=== PATIENT | male | born 1950 | race Caucasian/White ===

== ENCOUNTER → 2018-12-08 | Outpatient (CLI) | payer MEDICARE, BC ==
[2018-12-08 12:05] LABS: Basophils # (A) 0.1 k/uL (0-0.2); Basophils % (A) 1 %; Eosinophils # (A) 0.3 k/uL (0-0.7); Eosinophils % (A) 4 %; HCT 41.5 % (39.0-53.0); HGB 13.8 gm/dL (13.0-17.5); Lymphocytes # (A) 1.9 k/uL (1.0-4.8); Lymphocytes % (A) 28 %; MCH 30.2 pg (25.0-35.0); MCHC 33.2 g/dL (31.0-37.0); MCV 91.2 fL (80.0-100.0); Mean Platelet Volume 7.8; Monocytes # (A) 0.3 k/uL (0-1.0); Monocytes % (A) 5 %; Neutrophils # (A) 4.2 k/uL (1.3-7.7); Neutrophils % (A) 60 %; Platelet Count 305 k/uL (150-450); RBC 4.55 m/uL (4.30-5.90); RDW 14.6 % (11.5-15.5); WBC 6.9 k/uL (3.8-10.6)
[2018-12-08 12:07] LABS: African American GFR (CKD) >90 (>60 ml/min/1.73 sqM); Anion Gap 11 mmol/L; Blood Urea Nitrogen 20 mg/dL (9-20); Carbon Dioxide 24 mmol/L (22-30); Chloride 104 mmol/L (98-107); Sodium 139 mmol/L (137-145)
== END | disposition home or self-care (01) ==
LOC: LABPAT 10:27
PROVIDERS: ATTEND Surgery
DX: Z01.812 Encounter for preprocedural laboratory examination (principal); I73.9 Peripheral vascular disease, unspecified
CPT/HCPCS: 80051; 82565; 84520; 85025

== ENCOUNTER 2018-12-19 08:43 | Day surgery (SDC) | payer MEDICARE, BC ==
[2018-12-08 15:59] VITALS: BMI 31.4
[~2018-12-19 08:43] MED LIST: ASPIRIN 325 MG TAB PO ONE
[2018-12-19] MEDS ORDERED: SODIUM CHLORIDE 0.9% 1,000 ML IV ONE (09:20)
[2018-12-19 09:21] LABS: Glucose,Whole Blood 93 mg/dL (75-99)
[2018-12-19 09:30] VITALS: RESP 16; TEMP 97.8
[2018-12-19] MEDS ORDERED: LIDOCAINE 1% INJ 10MG/ML (20 ML MDV) SQ ONE (11:15)
[2018-12-19] MEDS ORDERED: fentaNYL (PF) 50 MCG/ML 2 ML AMP IV ONE (11:20)
[2018-12-19] MEDS ORDERED: MIDAZOLAM (PF) 2 MG/2 ML VIAL IV ONE (11:21)
[2018-12-19] MEDS ORDERED: IOPAMIDOL-250 100ML BTL INTRAARTER ONE (11:30)
--- NOTE | 2018-12-19 12:16 | IR ---
EXAMINATION TYPE: IR angio abdominal w runoff DATE OF EXAM: 12/19/2018 COMPARISON: NONE HISTORY: Fluoroscopy time. Fluoroscopy was provided to the referring clinician.
[2018-12-19] MEDS ORDERED: SODIUM CHLORIDE 0.9% 1,000 ML IV SCH (12:30)
[2018-12-19 13:35] VITALS: BP 138/78; PULSE 72
--- NOTE | 2018-12-26 14:20 | P.OP ---
Date of Procedure: 12/19/18 Preoperative Diagnosis: Bilateral lower extremity claudication Postop diagnosis: Bilateral lower extremity disabling claudication with left common femoral artery occlusion. Procedure: Aortogram with bilateral lower extremity runoffs via left brachial artery access under ultrasound guidance Surgeon: Toni Anesthesia: Moderate sedation times 18 minutes Estimated blood loss: 5 mL Complications: None Condition: Stable Findings: Aorta: No evidence of atherosclerotic disease. Patent Iliacs: Right common iliac is patent with stent in place without stenosis. Left iliac is patent without severe after stenotic disease. Internal and external iliac arteries are patent Femorals: Right femoral artery with patch angioplasty is widely patent there is some mild disease noted in the femoral artery extending into the superficial femoral artery. Superficial femoral artery has occlusive disease in the right distal to the Aubrey's canal. Left common femoral artery has severe occlusive disease. Profundus is patent and SFA has chronic total occlusion at the midportion down the thigh. Popliteal: Right distal popliteal artery at the knee and below is occluded. There is reconstitution noted at the anterior tibial artery. Left popliteal artery is patent. Tibials: Anterior tibial artery is patent with tibioperoneal trunk occlusion. Posterior tibial artery does re-collateralized. Left TPT and AT, PT are patent with two-vessel runoff to the ankle. Indication for procedure: 68 year old gentleman with history of severe PAD presents to the labor trainer for angiogram of his lower extremities. He recently had LISA's in the office which were severely decreased from his previous visit and his pain has been worsening on the left lower extremity and can only walk a 1/4 of a block without pain. Operative narrative: After written informed consent was obtained the patient all risks benefits competitions were described the patient is brought to the Grain Receiver and laid in a supine position. The area of the left arm was prepped and draped in the usual sterile fashion. Local anesthesia with moderate sedation was performed with continuous pulse ox monitoring and EKG monitoring. Utilizing ultrasound the left brachial artery was visualized and shown to be patent without any significant plaque. Utilizing a multipurpose needle under ultrasound guidance the artery was accessed. Guidewire was placed followed by 5 kenyan sheath. 035 Glidewire was then placed into the aorta followed by pigtail catheter. Angiogram was then obtained of the aorta. Catheter was then placed at the bifurcation and lower extremity runoffs were obtained. Once completed all guidewires, catheters and sheaths were removed and pressure was placed for hemostasis. Patient tolerated procedure well was sent to PACU for recovery Plan - Discharge Summary Discharge Rx Participant: Yes New Discharge Prescriptions: No Action Lisinopril 20 mg PO DAILY Atorvastatin [Lipitor] 20 mg PO DAILY Clopidogrel Bisulfate [Plavix] 75 mg PO DAILY Budesonide/Formoterol Fumarate [Symbicort 80-4.5 Mcg Inhaler] 2 puff INHALATION BID ALPRAZolam [Xanax] 0.5 mg PO TID Insulin Glargine [Lantus] 6 - 10 unit SQ HS Insulin Glargine [Lantus] 65 unit SQ DAILY glyBURIDE/METFORMIN HCL [Glucovance 2.5-500 mg] 1 tab PO BID Aspirin [Adult Low Dose Aspirin EC] 81 mg PO DAILY Discharge Medication List ALPRAZolam [Xanax] 0.5 mg PO TID 12/08/18 [History] Aspirin [Adult Low Dose Aspirin EC] 81 mg PO DAILY 12/08/18 [History] Atorvastatin [Lipitor] 20 mg PO DAILY 12/08/18 [History] Budesonide/Formoterol Fumarate [Symbicort 80-4.5 Mcg Inhaler] 2 puff INHALATION BID 12/08/18 [History] Clopidogrel Bisulfate [Plavix] 75 mg PO DAILY 12/08/18 [History] Insulin Glargine [Lantus] 6 - 10 unit SQ HS 12/08/18 [History] Insulin Glargine [Lantus] 65 unit SQ DAILY 12/08/18 [History] Lisinopril 20 mg PO DAILY 12/08/18 [History] glyBURIDE/METFORMIN HCL [Glucovance 2.5-500 mg] 1 tab PO BID 12/08/18 [History] Follow up Appointment(s)/Referral(s): Miki Muñoz DO [STAFF PHYSICIAN] - 01/09/19 2:30 pm (follow up appointment is on January 09Tuesday at 2:30 PM) Patient Instructions/Handouts: Peripheral Vascular Angioplasty (DC) Activity/Diet/Wound Care/Special Instructions: no driving for two days. signs of infection ie: fever, purulent drainage, swelling around arm/puncture site , rash contact doctor immediately/return to ER if needed. ok to shower tomorrow. No bath tubs, hot tubs, pools for three days. No need to apply dressing to site after shower. keep arm board on until bed time. Avoid lifting greater than 5 lbs for three days with left arm. Discharge Disposition: HOME SELF-CARE
== END 2018-12-19 13:35 | disposition home or self-care (01) ==
LOC: CATHCVL 08:43
PROVIDERS: ATTEND Surgery
DX: I70.213 Atherosclerosis of native arteries of extremities with intermittent claudication, bilateral legs (principal); F41.9 Anxiety disorder, unspecified; I72.3 Aneurysm of iliac artery; F17.200 Nicotine dependence, unspecified, uncomplicated; E11.9 Type 2 diabetes mellitus without complications; E78.00 Pure hypercholesterolemia, unspecified; Z98.890 Other specified postprocedural states; Z79.02 Long term (current) use of antithrombotics/antiplatelets; Z79.4 Long term (current) use of insulin; Z79.51 Long term (current) use of inhaled steroids; Z79.899 Other long term (current) drug therapy
CPT/HCPCS: 36200; 75625; 75716; 76937; C1894; C1769 ×4; J2001; J3010; Q9966; J2250

== ENCOUNTER → 2022-01-15 | Outpatient (CLI) | payer MEDICARE, BC ==
--- NOTE | 2022-01-17 10:56 | CA ---
Transthoracic Echo Report Name: Randy Yang Age: 71 Gender: M : 1950 Exam Date: 01/15/2022 12:02 Exam Location: [facility] Ht (in): 67 Wt (lb): 194 Ordering Physician: [place] Carl MD Attending/Referring Phys: Solution Manager Hayley Negrete RDCS Procedure CPT: Indications: I10 HYPERTENSION Cardiac Hx: Technical Quality: Good Contrast 1: Total Dose (mL): Contrast 2: Total Dose (mL): MEASUREMENTS (Male / Female) Normal Values 2D ECHO LA Volume 50.7 cm??? 18 - 58 / 22 - 52 cm??? M-MODE Aortic Root Diameter MM 3.2 cm LA Systolic Diameter MM 3.5 cm LA Ao Ratio MM 1.1 MV E Point Septal Separation 2.0 cm AV Cusp Separation MM 1.5 cm DOPPLER MV Area PHT 2.5 cm??? Mitral E Point Velocity 30.0 cm/s Mitral A Point Velocity 63.3 cm/s Mitral E to A Ratio 0.5 MV Deceleration Time 306.0 ms MV E' Velocity 3.4 cm/s Mitral E to MV E' Ratio 8.9 FINDINGS Left Ventricle Mildly impaired LV function was EF between 45-50% Right Ventricle The right ventricle is normal in size and function. Right Atrium The right atrium is normal in size. Left Atrium The left atrium is normal in size. Mitral Valve Structurally normal mitral valve without significant stenosis or prolapse. There is mild mitral regurgitation. Aortic Valve Structurally normal aortic valve without significant sclerosis or stenosis. There is no aortic regurgitation. Tricuspid Valve Structurally normal tricuspid valve without significant stenosis. Pulmonary artery systolic pressure is normal. Pulmonic Valve Structurally normal pulmonic valve without significant stenosis. There is no pulmonic regurgitation. Pericardium Normal pericardium without effusion. Aorta Normal aortic root dimension. CONCLUSIONS Mildly impaired LV function was EF between 45-50% Previewed by: Dr. Minh Soto MD (Electronically Signed) Final Date: 17 January 2022 10:55
== END | disposition home or self-care (01) ==
LOC: RADECHMAIN 11:56
PROVIDERS: ATTEND Internal Medicine
DX: I10 Essential (primary) hypertension (principal); I08.0 Rheumatic disorders of both mitral and aortic valves
CPT/HCPCS: 93306

== ENCOUNTER → 2022-06-18 | Outpatient (CLI) | payer MEDICARE, BC ==
--- NOTE | 2022-06-23 07:03 | MR ---
EXAMINATION TYPE: MR brain and iac wo/w con DATE OF EXAM: 06/18/2022 COMPARISON: NONE HISTORY: Imbalance, dizziness. TECHNIQUE: Multiplanar, multisequence images of the brain and brainstem along with internal auditory canals are all performed without and with IV contrast, utilizing 9 mL intravenous Gadavist . FINDINGS: Diffusion weighted images demonstrate no evidence of a recent infarct or other diffusion ab normality. There is mild to moderate ventricular and sulcal prominence. There are some small areas o f T2 hyperintensity throughout the deep and periventricular white matter. T2 Star weighted images kamilah w no suspicious intraparenchymal blood products Midline structures demonstrate normal morphology. The craniocervical junction appears within normal limits. Post contrast images demonstrate no abnormal enhancement. The dural venous sinuses appear pa tent. The globes are intact bilaterally mild to moderate mucosal thickening involving ethmoid sinuses bilaterally there are few tiny mucous retention cysts and/or polyps in the inferior maxillary sinuse s bilaterally. Increased fluid signal right mastoid air cells is present. The vestibulocochlear complexes are symmet donovan and felt within normal limits. There is no suspicious enhancing cerebellopontine angle mass clear ly seen bilaterally. IMPRESSION: 1. Increased fluid signal right mastoid air cells raises concern for right-sided mastoiditis and may cause symptoms of dizziness. 2. There is vagq-kr-[id number] diffuse cerebral atrophy and mild chronic small vessel ischemic change. No suspicious enhancement is seen. 3. There is chronic paranasal sinus disease noted as detailed above.
== END | disposition home or self-care (01) ==
LOC: RADMRIMAIN 07:52
PROVIDERS: ATTEND Psychiatry & Neurology Neurology
DX: I67.82 Cerebral ischemia (principal); G31.9 Degenerative disease of nervous system, unspecified; D49.6 Neoplasm of unspecified behavior of brain; H81.10 Benign paroxysmal vertigo, unspecified ear
CPT/HCPCS: 70553; A9585

== ENCOUNTER 2023-02-15 16:19 | Inpatient (IN) | payer MEDICARE, BC ==
[2023-02-15] MEDS ORDERED: SODIUM CHLORIDE 0.9% 1,000 ML IV STA (16:40)
[2023-02-15] MEDS ORDERED: ONDANSETRON 4 MG/2 ML VIAL IVP STA (16:40)
[2023-02-15] MEDS ORDERED: IPRATROPIUM-ALBUTEROL 3 ML NEB INHALATION STA (16:43)
--- NOTE | 2023-02-15 16:53 | ED ---
GI Bleed HPI - General Chief complaint: GI Bleed Stated complaint: black vomit and black stool Time Seen by Provider: 02/15/23 16:36 Source: patient Mode of arrival: ambulatory Limitations: no limitations - History of Present Illness Initial comments: 72-year-old male presenting with chief complaint of black stool and emesis. Patient states that on Tuesday he began to feel nauseous. On Tuesday he had multiple episodes of vomiting black in color. He also had a bowel movement that was black in color. States that today he had another dark bowel movement. He admits to left lower quadrant pain. No history of GI bleed. Patient is on Plavix. Currently smokes about a pack and a half day. Denies alcohol or drug use. No trauma or injury. No chest pain or difficulty breathing. No fevers or chills. States that he gets a bit lightheaded when transferring from sitting to standing. - Related Data Home Medications Medication Instructions Recorded Confirmed ALPRAZolam [Xanax] 0.5 mg PO TID 12/08/18 02/15/23 Aspirin [Adult Low Dose Aspirin EC] 81 mg PO DAILY 12/08/18 02/15/23 Atorvastatin [Lipitor] 20 mg PO DAILY 12/08/18 02/15/23 Clopidogrel Bisulfate [Plavix] 75 mg PO DAILY 12/08/18 02/15/23 glyBURIDE/METFORMIN HCL 1 tab PO DAILY 12/08/18 02/15/23 [Glucovance 2.5-500 mg] lisinopriL 20 mg PO DAILY 12/08/18 02/15/23 Budesonide/Formoterol Fumarate 2 puff INHALATION RT-BID 02/15/23 02/15/23 [Symbicort 160-4.5 Mcg Inhaler] Empagliflozin [Jardiance] 25 mg PO -BRKFST 02/15/23 02/15/23 Insulin Glargine,Hum.rec.anlog 74 units SQ AC-BRKFST 02/15/23 02/15/23 [Lantus Solostar Pen] metFORMIN HCL ER [Glucophage XR] 1,000 mg PO BID-W/MEALS 02/15/23 02/15/23 Allergies Allergy/AdvReac Type Severity Reaction Status Date / Time No Known Allergies Allergy Verified 02/15/23 16:26 Review of Systems ROS Statement: Those systems with pertinent positive or pertinent negative responses have been documented in the HPI. ROS Other: All systems not noted in ROS Statement are negative. Past Medical History Past Medical History: Diabetes Mellitus, Hyperlipidemia, Hypertension, Osteoarthritis (OA), Vascular Disorder History of Any Multi-Drug Resistant Organisms: None Reported Past Surgical History: Orthopedic Surgery, Tonsillectomy Additional Past Surgical History / Comment(s): stent in rt groin, ORIF rt ankle, Past Anesthesia/Blood Transfusion Reactions: No Reported Reaction Past Psychological History: Anxiety Smoking Status: Current every day smoker Past Alcohol Use History: None Reported Past Drug Use History: None Reported - Past Family History Mother Family Medical History: No Reported History General Exam Limitations: no limitations General appearance: alert, in no apparent distress Head exam: Present: atraumatic, normocephalic, normal inspection Eye exam: Present: normal appearance, EOMI. Absent: scleral icterus, periorbital swelling Neck exam: Present: normal inspection, full ROM Respiratory exam: Present: normal lung sounds bilaterally. Absent: respiratory distress, wheezes, rales, rhonchi, stridor Cardiovascular Exam: Present: regular rate, normal rhythm, normal heart sounds. Absent: systolic murmur, diastolic murmur, rubs, gallop, clicks GI/Abdominal exam: Present: soft, tenderness. Absent: distended, guarding, rebound, rigid Neurological exam: Present: alert, oriented X3, CN II-XII intact Psychiatric exam: Present: normal affect, normal mood Skin exam: Present: warm, dry, intact, normal color. Absent: rash Course Vital Signs 02/15/23 02/15/23 02/15/23 16:21 18:13 18:27 Temperature 97.4 F L Pulse Rate 97 88 85 Respiratory 20 18 Rate Blood Pressure 129/68 129/73 O2 Sat by Pulse 98 Oximetry 02/15/23 23:44 Temperature Pulse Rate 82 Respiratory 16 Rate Blood Pressure 128/60 O2 Sat by Pulse 96 Oximetry Medical Decision Making - Medical Decision Making Was pt. sent in by a medical professional or institution (, PA, BIOPSYCHOLOGIST, urgent care, hospital, or retirement...) When possible be specific @ -No Did you speak to anyone other than the patient for history (EMS, parent, family, police, friend...)? What history was obtained from this source @ -No Did you review nursing and triage notes (agree or disagree)? Why? @ -I reviewed and agree with nursing and triage notes Were old charts reviewed (outside hosp., previous admission, EMS record, old EKG, old radiological studies, urgent care reports/EKG's, retirement records)? Report findings @ -No old charts were reviewed Differential Diagnosis (chest pain, altered mental status, abdominal pain women, abdominal pain men, vaginal bleeding, weakness, fever, dyspnea, syncope, headache, dizziness, GI bleed, back pain, seizure, CVA, palpatations, mental health, musculoskeletal)? @ -MDM Differential GI Bleed: Esophageal varices, aortoenteric fistula, Malu-Khan, gastritis, peptic ulcer disease, diverticulosis, inflammatory bowel disease, hemorrhoids, fissure, colitis, malignancy, Meckels diverticulum this is not meant to be an all- inclusive list. EKG interpreted by me (3pts min.). @ -Sinus rhythm ventricular rate 89. MO interval 175. QRS 98. QT 355. QTC 401. X-rays interpreted by me (1pt min.). @ -None done CT interpreted by me (1pt min.). @ -Left-sided colonic diverticulosis no evidence for diverticulitis. Prominent fluid-filled small bowel loops throughout the abdomen and pelvis correlate for generalized enteritis. Severe stenoses at the origin and proximal aspect of the SMA and likely at the bilateral proximal renal arteries as well. Severe stenosis proximal left SFA and right SFA origin. Moderate focal stenoses p roximal PFA on both sides right greater than left. Moderate left-sided hydronephrosis with transition point at the UPJ possibly UPJ stricture/stenosis. Small hiatal hernia. Prostatomegaly of 5.8 cm wide U/S interpreted by me (1pt. min.). @ -None done What testing was considered but not performed or refused? (CT, X-rays, U/S, labs)? Why? @ -None What meds were considered but not given or refused? Why? @ -None Did you discuss the management of the patient with other professionals (professionals i.e. , PA, BIOPSYCHOLOGIST, lab, RT, psych nurse, social media specialist, picked edge sewing machine operator, teacher, custodial officer, showcase maker)? Give summary @ -I spoke with Karla Trevino who accepted admission Was smoking cessation discussed for >3mins.? @ -No Was critical care preformed (if so, how long)? @ -No Were there social determinants of health that impacted care today? How? (Homeles sness, low income, unemployed, alcoholism, drug addiction, transportation, low edu. Level, literacy, decrease access to med. care, senior living, rehab)? @ -No Was there de-escalation of care discussed even if they declined (Discuss DNR or withdrawal of care, Hospice)? DNR status @ -No What co-morbidities impacted this encounter? (DM, HTN, Smoking, COPD, CAD, Cancer, CVA, ARF, Chemo, Hep., AIDS, mental health diagnosis, sleep apnea, morbid obesity)? @ -smoking Was patient admitted / discharged? Hospital course, mention meds given and route, prescriptions, significant lab abnormalities, going to OR and other pertinent info. @ -72-year-old male presenting with chief complaint of GI bleed. Physical examination is conducted. Hemoglobin 9.4. Patient is on Plavix. Positive occult stool. CT shows diverticulosis without diverticulitis. Patient will be admitted with GI consult. I discussed this case in detail with my attending Dr. Novak Undiagnosed new problem with uncertain prognosis? @ -No Drug Therapy requiring intensive monitoring for toxicity (Heparin, Nitro, Insulin, Cardizem)? @ -No Were any procedures done? @ -No Diagnosis/symptom? @ -GI bleed Acute, or Chronic, or Acute on Chronic? @ -Acute Uncomplicated (without systemic symptoms) or Complicated (systemic symptoms)? @ -Complicated Side effects of treatment? @ -No Exacerbation, Progression, or Severe Exacerbation? @ -No Poses a threat to life or bodily function? How? (Chest pain, [place], [place], pneumonia, PE, COPD, DKA, ARF, appy, cholecystitis, CVA, Diverticulitis, Homicidal, Suicidal, threat to staff... and all critical care pts) @ -Yes - Lab Data Result diagrams: 02/15/23 17:06 02/15/23 17:06 Lab Results 02/15/23 02/15/23 02/15/23 Range/Units 17:06 17:06 17:06 WBC 10.1 (3.8-10.6) k/uL RBC 2.93 L (4.30-5.90) m/uL Hgb 9.4 L (13.0-17.5) gm/dL Hct 27.1 L (39.0-53.0) % MCV 92.5 (80.0-100.0) fL MCH 32.0 (25.0-35.0) pg MCHC 34.7 (31.0-37.0) g/dL RDW 14.1 (11.5-15.5) % Plt Count 270 (150-450) k/uL MPV 8.1 Neutrophils % 75 % Lymphocytes % 15 % Monocytes % 5 % Eosinophils % 3 % Basophils % 0 % Neutrophils # 7.6 (1.3-7.7) k/uL Lymphocytes # 1.5 (1.0-4.8) k/uL Monocytes # 0.5 (0-1.0) k/uL Eosinophils # 0.3 (0-0.7) k/uL Basophils # 0.0 (0-0.2) k/uL PT 9.6 (9.0-12.0) sec INR 0.9 (<1.2) APTT 21.7 L (22.0-30.0) sec Sodium 137 (137-145) mmol/L Potassium 4.6 (3.5-5.1) mmol/L Chloride 106 (98-107) mmol/L Carbon Dioxide 22 (22-30) mmol/L Anion Gap 9 mmol/L BUN 38 H (9-20) mg/dL Creatinine 0.97 (0.66-1.25) mg/dL Est GFR (CKD-EPI)AfAm >90 (>60 ml/min/1.73 sqM) Est GFR (CKD-EPI)NonAf 78 (>60 ml/min/1.73 sqM) Glucose 127 H (74-99) mg/dL Lactic Ac Sepsis Rflx Plasma Lactic Acid Eliot (0.7-2.0) mmol/L Calcium 9.2 (8.4-10.2) mg/dL Magnesium 1.7 (1.6-2.3) mg/dL Total Bilirubin 0.3 (0.2-1.3) mg/dL AST 27 (17-59) U/L ALT 25 (4-49) U/L Alkaline Phosphatase 66 (38-126) U/L Troponin I (0.000-0.034) ng/mL Total Protein 6.4 (6.3-8.2) g/dL Albumin 3.6 (3.5-5.0) g/dL Stool Occult Blood (Negative) 02/15/23 02/15/23 02/15/23 Range/Units 17:06 17:06 17:06 WBC (3.8-10.6) k/uL RBC (4.30-5.90) m/uL Hgb (13.0-17.5) gm/dL Hct (39.0-53.0) % MCV (80.0-100.0) fL MCH (25.0-35.0) pg MCHC (31.0-37.0) g/dL RDW (11.5-15.5) % Plt Count (150-450) k/uL MPV Neutrophils % % Lymphocytes % % Monocytes % % Eosinophils % % Basophils % % Neutrophils # (1.3-7.7) k/uL Lymphocytes # (1.0-4.8) k/uL Monocytes # (0-1.0) k/uL Eosinophils # (0-0.7) k/uL Basophils # (0-0.2) k/uL PT (9.0-12.0) sec INR (<1.2) APTT (22.0-30.0) sec Sodium (137-145) mmol/L Potassium (3.5-5.1) mmol/L Chloride (98-107) mmol/L Carbon Dioxide (22-30) mmol/L Anion Gap mmol/L BUN (9-20) mg/dL Creatinine (0.66-1.25) mg/dL Est GFR (CKD-EPI)AfAm (>60 ml/min/1.73 sqM) Est GFR (CKD-EPI)NonAf (>60 ml/min/1.73 sqM) Glucose (74-99) mg/dL Lactic Ac Sepsis Rflx Plasma Lactic Acid Eliot 2.3 H* (0.7-2.0) mmol/L Calcium (8.4-10.2) mg/dL Magnesium (1.6-2.3) mg/dL Total Bilirubin (0.2-1.3) mg/dL AST (17-59) U/L ALT (4-49) U/L Alkaline Phosphatase (38-126) U/L Troponin I <0.012 (0.000-0.034) ng/mL Total Protein (6.3-8.2) g/dL Albumin (3.5-5.0) g/dL Stool Occult Blood Positive (Negative) 02/15/23 Range/Units 17:40 WBC (3.8-10.6) k/uL RBC (4.30-5.90) m/uL Hgb (13.0-17.5) gm/dL Hct (39.0-53.0) % MCV (80.0-100.0) fL MCH (25.0-35.0) pg MCHC (31.0-37.0) g/dL RDW (11.5-15.5) % Plt Count (150-450) k/uL MPV Neutrophils % % Lymphocytes % % Monocytes % % Eosinophils % % Basophils % % Neutrophils # (1.3-7.7) k/uL Lymphocytes # (1.0-4.8) k/uL Monocytes # (0-1.0) k/uL Eosinophils # (0-0.7) k/uL Basophils # (0-0.2) k/uL PT (9.0-12.0) sec INR (<1.2) APTT (22.0-30.0) sec Sodium (137-145) mmol/L Potassium (3.5-5.1) mmol/L Chloride (98-107) mmol/L Carbon Dioxide (22-30) mmol/L Anion Gap mmol/L BUN (9-20) mg/dL Creatinine (0.66-1.25) mg/dL Est GFR (CKD-EPI)AfAm (>60 ml/min/1.73 sqM) Est GFR (CKD-EPI)NonAf (>60 ml/min/1.73 sqM) Glucose (74-99) mg/dL Lactic Ac Sepsis Rflx Y Plasma Lactic Acid Eliot (0.7-2.0) mmol/L Calcium (8.4-10.2) mg/dL Magnesium (1.6-2.3) mg/dL Total Bilirubin (0.2-1.3) mg/dL AST (17-59) U/L ALT (4-49) U/L Alkaline Phosphatase (38-126) U/L Troponin I (0.000-0.034) ng/mL Total Protein (6.3-8.2) g/dL Albumin (3.5-5.0) g/dL Stool Occult Blood (Negative) Disposition Clinical Impression: GI bleed Disposition: ADMITTED IP TO THIS HOSP Condition: Fair Time of Disposition: 18:45
[2023-02-15 17:22] LABS: Basophils % (A) 0 %; Eosinophils # (A) 0.3 k/uL (0-0.7); Eosinophils % (A) 3 %; HCT 27.1 % (39.0-53.0); HGB 9.4 gm/dL (13.0-17.5); Lymphocytes # (A) 1.5 k/uL (1.0-4.8); Lymphocytes % (A) 15 %; MCHC 34.7 g/dL (31.0-37.0); MCV 92.5 fL (80.0-100.0); Mean Platelet Volume 8.1; Monocytes # (A) 0.5 k/uL (0-1.0); Monocytes % (A) 5 %; Neutrophils # (A) 7.6 k/uL (1.3-7.7); Neutrophils % (A) 75 %; Platelet Count 270 k/uL (150-450); RBC 2.93 m/uL (4.30-5.90); RDW 14.1 % (11.5-15.5); WBC 10.1 k/uL (3.8-10.6)
[2023-02-15 17:36] LABS: ALT 25 U/L (4-49); AST 27 U/L (17-59); African American GFR (CKD) >90 (>60 ml/min/1.73 sqM); Albumin 3.6 g/dL (3.5-5.0); Alkaline Phosphatase 66 U/L (38-126); Anion Gap 9 mmol/L; Blood Urea Nitrogen 38 mg/dL (9-20); Calcium 9.2 mg/dL (8.4-10.2); Carbon Dioxide 22 mmol/L (22-30); Chloride 106 mmol/L (98-107); Glucose 127 mg/dL (74-99); INR 0.9 (<1.2); Magnesium 1.7 mg/dL (1.6-2.3); Non-African American GFR(CKD) 78 (>60 ml/min/1.73 sqM); Potassium 4.6 mmol/L (3.5-5.1); Prothrombin Time 9.6 sec (9.0-12.0); Sodium 137 mmol/L (137-145); Total Bilirubin 0.3 mg/dL (0.2-1.3); Total Protein 6.4 g/dL (6.3-8.2)
[2023-02-15 17:39] LABS: Partial Thromboplastin Time 21.7 sec (22.0-30.0)
--- NOTE | 2023-02-15 18:26 | CT ---
EXAMINATION TYPE: CT abdomen pelvis w con DATE OF EXAM: 02/15/2023 COMPARISON: NONE HISTORY: 72-year-old male LLQ pain, black stools TECHNIQUE: Contiguous axial scanning of the abdomen and pelvis following administration of 100 ml Iso sissy 370 IV contrast. Delayed images through the kidneys and coronal/sagittal reconstructions perform ed. CT DLP: 1224.1 mGycm Automated exposure control for dose reduction was used. FINDINGS: Heart normal size without pericardial effusion. Strandy atelectasis or scarring in the lower lungs. Small hiatal hernia. Liver shows no focal lesion. Portal venous system is patent. No biliary ductal dilatation. Gallbladder, adrenal glands,, and pancreas within normal limits. 1 cm benign cortical cyst right kidney. There is moderate left-sided hydronephrosis with transition point at the UPJ, possible UPJ stricture/ stenosis. Circumaortic left renal vein. Mild atherosclerotic narrowing at the origin of the celiac axis. Severe atherosclerotic narrowing in the origin of the proximal aspect of the SMA and possibly at the bilateral proximal renal arteries. Ectatic left common iliac artery 1.9 cm. Moderate atherosclerotic calcifications continue around the iliac arteries. Severe stenosis proximal left SFA and also in the right SFA origin. Moderate focal stenoses proximal PFA on both sides, right greater than left. No dilated small bowel, free fluid, or free air. However, diffuse fluid-filled small bowel loops are present throughout. Normal appendix. Cjvt-[id number]-[id number] stool. Left-sided colonic diverticulosis. No pericolonic inflammato ry change. Bladder partially distended. Prostate gland enlargement 5.8 cm wide. No abnormal fluid collection in the pelvis or pelvic lymphadenopathy. Bones: Hypertrophic facet arthropathy. Nearly grade 2 anterolisthesis L4-L5. Moderate degenerative di sc disease lower lumbar spine. IMPRESSION: 1. LEFT-SIDED CLONIC DIVERTICULOSIS. NO EVIDENCE FOR ACUTE DIVERTICULITIS. 2. PROMINENT FLUID-FILLED SMALL BOWEL LOOPS THROUGHOUT THE ABDOMEN AND PELVIS. CORRELATE FOR A GENERA LIZED ENTERITIS. 3. SEVERE STENOSES AT THE ORIGIN AND PROXIMAL ASPECT OF THE SMA AND LIKELY AT THE BILATERAL PROXIMAL RENAL ARTERIES WELL. 4. SEVERE STENOSIS PROXIMAL LEFT SFA AND RIGHT SFA ORIGIN. MODERATE FOCAL STENOSES PROXIMAL PFA ON CECILY TH SIDES, RIGHT GREATER THAN LEFT. 5. MODERATE LEFT-SIDED HYDRONEPHROSIS WITH TRANSITION POINT AT THE UPJ. POSSIBLE UPJ STRICTURE/STENOS IS. CONSIDER FURTHER UROLOGY REFERRAL/EVALUATION. 6. SMALL HIATAL HERNIA. PROSTATOMEGALY OF 5.8 CM WIDE.
[2023-02-15] MEDS ORDERED: KETOROLAC 15 MG/ML 1 ML VIAL IVP PRN (18:47)
[2023-02-15] MEDS ORDERED: MORPHINE SULFATE 4 MG/ML SYRINGE IV PRN (18:47)
[2023-02-15] MEDS ORDERED: NALOXONE 0.4 MG/ML 1 ML VIAL IV PRN (18:47)
[2023-02-15] MEDS ORDERED: ONDANSETRON 4 MG/2 ML VIAL IVP PRN (18:47)
[2023-02-15] MEDS ORDERED: ALPRAZolam 0.5 MG TAB PO PRN (19:42)
[2023-02-15] MEDS: PANTOPRAZOLE 40 MG/10 ML VIAL IV SCH (19:45)
[2023-02-15] MEDS: SODIUM CHLORIDE 0.9% 1,000 ML IV SCH (19:45)
[2023-02-15] MEDS: NICOTINE 14MG/24HR PATCH TRANSDERM SCH (20:28)
[2023-02-16] MEDS: NICOTINE 14MG/24HR PATCH TRANSDERM SCH (08:23)
[2023-02-16] MEDS: PANTOPRAZOLE 40 MG/10 ML VIAL IV SCH (08:23)
[2023-02-16 08:47] LABS: Glucose,Whole Blood 59 mg/dL (70-110)
[2023-02-16] MEDS ORDERED: DEXTROSE 50% SYRINGE 50 ML IVP STA (09:00)
[2023-02-16] MEDS: SODIUM CHLORIDE 0.9% 1,000 ML IV SCH ×2 (09:01→20:49)
[2023-02-16 09:06] LABS: ALT 25 U/L (10-49); AST 20 U/L (14-35); Albumin 3.6 d/dL (3.8-4.9); Alkaline Phosphatase 60 U/L (41-126); Blood Urea Nitrogen 27.7 mg/dL (9.0-27.0); Calcium 8.6 mg/dL (8.7-10.3); Carbon Dioxide 23.7 mmol/L (21.6-31.8); Chloride 107 mmol/L (96-109); Globulin 1.8 d/dL (1.6-3.3); Glucose 78 mg/dL (70-110); Potassium 4.6 mmol/L (3.5-5.5); Sodium 140 mmol/L (135-145); Total Bilirubin <0.2 mg/dL (0.3-1.2); Total Protein 5.4 d/dL (6.2-8.2)
[2023-02-16 09:23] LABS: Glucose,Whole Blood 186 mg/dL (70-110)
[2023-02-16 09:39] LABS: Basophils # (A) 0.07 X 10*3/uL (0.00-0.10); Basophils % (A) 0.8 %; Eosinophils # (A) 0.47 X 10*3/uL (0.04-0.35); Eosinophils % (A) 5.4 %; HCT 24.2 % (39.6-50.0); Lymphocytes # (A) 2.34 X 10*3/uL (0.90-5.00); Lymphocytes % (A) 26.7 %; MCH 31.3 pg (27.0-32.0); MCHC 33.1 d/dL (32.0-37.0); MCV 94.5 FL (80.0-97.0); Mean Platelet Volume 10.8 FL (9.5-12.2); Monocytes # (A) 0.67 X 10*3/uL (0.20-1.00); Monocytes % (A) 7.6 %; NRBC Per 100 WBC 0 X 10*3/uL (0.00-0.01); Neutrophils % (A) 59.2 %; Platelet Count 276 X 10*3/uL (140-440); RBC 2.56 X 10*6/uL (4.40-5.60); RDW 14.6 % (11.5-14.5); WBC 8.78 X 10*3/uL (4.50-10.00)
[2023-02-16] MEDS ORDERED: DEXTROSE 50% SYRINGE 50 ML IVP PRN ×2 (10:28)
[2023-02-16] MEDS: DEXTROSE 5%-0.9% NACL 1,000 ML IV SCH ×2 (10:32→20:49)
--- NOTE | 2023-02-16 11:19 | P.CONS ---
History of Present Illness - Reason for Consult Consult date: 02/16/23 GI bleed Requesting physician: Melissa Hernandez - Chief Complaint Coffee-ground emesis, black stool - History of Present Illness This is a pleasant 72-year-old male with a past medical history including peripheral vascular disease, COPD, diabetes mellitus, hyperlipidemia, hypertension and current every day smoker who presented to the emergency department with complaints of coffee-ground emesis and black stools since Tuesday. He states he only had one episode of coffee-ground emesis he had a little bit of cramping associated with that and he had been having dark stools for the last few days duration. He states he only had 1 episode of emesis none further. 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 Patient denies any previous history of GI bleed, no history of peptic ulcer disease, he is not on any NSAIDs he does take a low-dose baby aspirin and Plavix 75 mg daily last dose yesterday. Patient was noted to have anemia with elevated BUN. He had a CT of the abdomen and pelvis that reported left-sided colonic diverticulosis. No evidence for acute diverticulitis. Prominent fluid-filled small bowel loops throughout the abdomen and pelvis correlate for generalized enteritis. 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 Severe stenosis proximal left SFA and right SFA origin moderate focal stenosis proximal PFA on both sides, right greater than left. Moderate left-sided hydronephrosis with transition point at the UPJ. Possible UPJ stricture/stenosis consider further urology referral/evaluation. Small hiatal hernia. Prostatomegaly a 5.8 cm wide. Labs WBC 8.7 hemoglobin 8.0 hematocrit 24 platelet count 276,000 INR 0.9 sodium 140 potassium 4.6 BUN 27.7 creatinine 1.0 total bilirubin less than 0.2 AST 20 ALT 25 alkaline phosphatase 60 occult blood positive Review of Systems REVIEW OF SYSTEMS: CARDIOPULMONARY: No chest pain or shortness of breath. Gastrointestinal: No epigastric or abdominal pain. Patient did state he had some mild cramping the other day. One episode of coffee-ground emesis and several dark stools. bleeding, or melena. GENITOURINARY: No dysuria or hematuria. MUSCULOSKELETAL: Reports normal range of motion. SKIN: No rashes. No jaundice. ENDOCRINE: No chills, fevers. No excessive weight gain or loss. No polydipsia or polyuria. PSYCHIATRIC: Unremarkable. NEUROLOGY: No change in mental status. Denies dizziness, headache. ENT: Vision unremarkable. CONSTITUTIONAL: No recent weight loss. No fever, chills, night sweats. Past Medical History Past Medical History: Diabetes Mellitus, Hyperlipidemia, Hypertension, Osteoarthritis (OA), Vascular Disorder History of Any Multi-Drug Resistant Organisms: None Reported Past Surgical History: Orthopedic Surgery, Tonsillectomy Additional Past Surgical History / Comment(s): stent in rt groin, ORIF rt ankle, Past Anesthesia/Blood Transfusion Reactions: No Reported Reaction Past Psychological History: Anxiety Smoking Status: Current every day smoker Past Alcohol Use History: None Reported Past Drug Use History: None Reported - Past Family History Mother Family Medical History: No Reported History Medications and Allergies Home Medications Medication Instructions Recorded Confirmed Type ALPRAZolam [Xanax] 0.5 mg PO TID 12/08/18 02/15/23 History Aspirin [Adult Low Dose Aspirin EC] 81 mg PO DAILY 12/08/18 02/15/23 History Atorvastatin [Lipitor] 20 mg PO DAILY 12/08/18 02/15/23 History Clopidogrel Bisulfate [Plavix] 75 mg PO DAILY 12/08/18 02/15/23 History glyBURIDE/METFORMIN HCL 1 tab PO DAILY 12/08/18 02/15/23 History [Glucovance 2.5-500 mg] lisinopriL 20 mg PO DAILY 12/08/18 02/15/23 History Budesonide/Formoterol Fumarate 2 puff INHALATION RT-BID 02/15/23 02/15/23 History [Symbicort 160-4.5 Mcg Inhaler] Empagliflozin [Jardiance] 25 mg PO -KT 02/15/23 02/15/23 History Insulin Glargine,Hum.rec.anlog 74 units SQ -K02/15/23 02/15/23 History [Lantus Solostar Pen] metFORMIN HCL ER [Glucophage XR] 1,000 mg PO BID-W/MEALS 02/15/23 02/15/23 History Allergies Allergy/AdvReac Type Severity Reaction Status Date / Time No Known Allergies Allergy Verified 02/15/23 16:26 Physical Exam Vitals: Vital Signs Temp Pulse Resp BP Pulse Ox 02/16/23 07:00 97.7 F 91 18 110/54 97 02/16/23 06:00 78 16 117/48 97 02/15/23 23:44 82 16 128/60 96 02/15/23 18:27 85 02/15/23 18:13 88 18 129/73 02/15/23 16:21 97.4 F L 97 20 129/68 98 Intake and Output 02/15/23 02/16/23 02/16/23 22:59 06:59 14:59 Other: Weight 88.451 kg General appearance: The patient is alert, oriented, appears in no acute distress. HET: Head is normocephalic and atraumatic. Conjunctiva pink. Sclera anicteric. Neck: Supple without lymphadenopathy. Trachea midline. Heart: S1 S2. Regular rate and rhythm. Lungs: Clear to auscultation. Abdomen: Soft, nontender, nondistended with bowel sounds. No guarding or rigidity. Skin: No rashes. No jaundice. Extremities: Normal skin color and turgor. No pedal edema. Neurological: No focal deficits. Alert and oriented x3. Results CBC & Chem 7: 02/16/23 02:26 02/16/23 02:26 Labs: Abnormal Lab Results - Last 24 Hours (Table) 02/15/23 02/15/23 02/15/23 Range/Units 17:06 17:06 17:06 RBC 2.93 L (4.30-5.90) m/uL Hgb 9.4 L (13.0-17.5) gm/dL Hct 27.1 L (39.0-53.0) % APTT 21.7 L (22.0-30.0) sec BUN 38 H (9-20) mg/dL Glucose 127 H (74-99) mg/dL POC Glucose (mg/dL) (70-110) mg/dL Plasma Lactic Acid Eliot (0.7-2.0) mmol/L 02/15/23 02/15/23 02/15/23 Range/Units 17:06 20:22 23:06 RBC (4.30-5.90) m/uL Hgb (13.0-17.5) gm/dL Hct (39.0-53.0) % APTT (22.0-30.0) sec BUN (9-20) mg/dL Glucose (74-99) mg/dL POC Glucose (mg/dL) (70-110) mg/dL Plasma Lactic Acid Eliot 2.3 H* 2.8 H* 2.4 H* (0.7-2.0) mmol/L 02/16/23 Range/Units 08:45 RBC (4.30-5.90) m/uL Hgb (13.0-17.5) gm/dL Hct (39.0-53.0) % APTT (22.0-30.0) sec BUN (9-20) mg/dL Glucose (74-99) mg/dL POC Glucose (mg/dL) 59 L (70-110) mg/dL Plasma Lactic Acid Eliot (0.7-2.0) mmol/L Comments: CT of the abdomen and pelvis that reported left-sided colonic diverticulosis. No evidence for acute diverticulitis. Prominent fluid-filled small bowel loops throughout the abdomen and pelvis correlate for generalized enteritis. 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 Severe stenosis proximal left SFA and right SFA origin moderate focal stenosis proximal PFA on both sides, right greater than left. Moderate left-sided hydronephrosis with transition point at the UPJ. Possible UPJ stricture/stenosis consider further urology referral/evaluation. Small hiatal hernia. Prostatomegaly a 5.8 cm wide. Assessment and Plan (1) GI bleed Narrative/Plan: 72-year-old male with a history of peripheral vascular disease amongst other comorbidities presented with black stool and coffee-ground emesis that began on Tuesday. No previous history of peptic ulcer disease, GI bleed, denies any anticoagulation or NSAID use. Patient is on Plavix for peripheral arterial disease. The patient noted to be anemic on admission with hemoglobin 9.4 with a drop today to 8.0, normocytic normochromic anemia. Patient also had elevated BUN 38 on admission now 27.7 CONSISTENT with possible upper GI bleed. Unclear etiology, need to consider possible peptic ulcer disease, AVM, gastritis, esophagitis, or other possible etiologies. Will proceed with upper endoscopy today. Current Visit: Yes Status: Acute Code(s): K92.2 - GASTROINTESTINAL HEMORRHAGE, UNSPECIFIED SNOMED Code(s): 96242218 (2) Peripheral vascular disease Narrative/Plan: On Plavix, and aspirin 81 mg daily Current Visit: Yes Status: Acute Code(s): I73.9 - PERIPHERAL VASCULAR DISEASE, UNSPECIFIED SNOMED Code(s): 655454572 (3) Tobacco abuse Current Visit: Yes Status: Acute Code(s): Z72.0 - TOBACCO USE SNOMED Code( s): 640838742 (4) Diabetes mellitus Current Visit: Yes Status: Acute Code(s): E11.9 - TYPE 2 DIABETES MELLITUS WITHOUT COMPLICATIONS SNOMED Code(s): 41206563 Plan: 1. Continue symptomatic and supportive care 2. Daily CBC, transfuse for hemoglobin less than 7 3. Protonix 40 mg daily 5. Hold Plavix 6. Avoid NSAIDs 7. Keep nothing by mouth 8. Plan for upper endoscopy this afternoon. Procedure discussed with patient including risks and benefits. Patient willing to proceed. Thank you for this consultation, we will continue to follow. Dr. Mallorie Botello I agree with the dictator's note, documented as a scribe by Federica Wills.
--- NOTE | 2023-02-16 11:48 | P.GSCN ---
History of Present Illness Consult date: 02/16/23 Reason for Consult: SMA and bilateral renal artery stenosis Requesting physician: Avinash Lewis History of present illness: This is 72-year-old male known to vascular surgery who follows with Dr. Muñoz. Patient has a history of peripheral arterial disease status post revascularization with right common iliac stent and right femoral artery angioplasty, diabetes mellitus, hypertension, hyperlipidemia, COPD, and chronic daily smoker. Patient presented to the emergency department concerned for black stool and coffee-ground emesis. He was known to be anemic and had a cold stool that was positive. Gastroenterology is following them plan for upper endoscopy today. Patient is without any other complaints at this time. Patient has history of bilateral lower extremity disabling claudication with left common femoral artery occlusion status post revascularization. Last aortogram with runoff in 2019 reported SFA occlusive disease in the right distal to the Aubrey's canal, left common femoral artery severe occlusive disease, profundus patent SFA chronic total occlusion at the midportion down the thigh. Patient has appointment with Dr. Muñoz next week Tuesday. He denies any change in symptoms, no significant increase in pain in his lower extremities. No shortness of breath, chest pain, or abdominal pain. Patient had a CT of the abdomen and pelvis with contrast that reported severe stenosis at origin and proximal aspect of the SMA and likely at the bilateral proximal renal arteries as well. Severe stenosis proximal left SFA and right SFA origin. Moderate focal stenosis proximal PFA on both sides right greater than left, vascular surgery was consulted for the above. Review of Systems A 14 point review systems was completed all pertinent positives and negatives as stated in the HPI. Past Medical History Past Medical History: Diabetes Mellitus, Hyperlipidemia, Hypertension, Osteoarthritis (OA), Vascular Disorder History of Any Multi-Drug Resistant Organisms: None Reported Past Surgical History: Orthopedic Surgery, Tonsillectomy Additional Past Surgical History / Comment(s): stent in rt groin, ORIF rt ankle, Past Anesthesia/Blood Transfusion Reactions: No Reported Reaction Past Psychological History: Anxiety Smoking Status: Current every day smoker Past Alcohol Use History: None Reported Past Drug Use History: None Reported - Past Family History Mother Family Medical History: No Reported History Medications and Allergies Home Medications Medication Instructions Recorded Confirmed Type ALPRAZolam [Xanax] 0.5 mg PO TID 12/08/18 02/15/23 History Aspirin [Adult Low Dose Aspirin EC] 81 mg PO DAILY 12/08/18 02/15/23 History Atorvastatin [Lipitor] 20 mg PO DAILY 12/08/18 02/15/23 History Clopidogrel Bisulfate [Plavix] 75 mg PO DAILY 12/08/18 02/15/23 History glyBURIDE/METFORMIN HCL 1 tab PO DAILY 12/08/18 02/15/23 History [Glucovance 2.5-500 mg] lisinopriL 20 mg PO DAILY 12/08/18 02/15/23 History Budesonide/Formoterol Fumarate 2 puff INHALATION RT-BID 02/15/23 02/15/23 History [Symbicort 160-4.5 Mcg Inhaler] Empagliflozin [Jardiance] 25 mg PO AC-BRKFST 02/15/23 02/15/23 History Insulin Glargine,Hum.rec.anlog 74 units SQ AC-BRKFST 02/15/23 02/15/23 History [Lantus Solostar Pen] metFORMIN HCL ER [Glucophage XR] 1,000 mg PO BID-W/MEALS 02/15/23 02/15/23 History Allergies Allergy/AdvReac Type Severity Reaction Status Date / Time No Known Allergies Allergy Verified 02/15/23 16:26 Surgical - Exam Vital Signs Temp Pulse Resp BP Pulse Ox 97.4 F L 97 20 129/68 98 02/15/23 16:21 02/15/23 16:21 02/15/23 16:21 02/15/23 16:21 02/15/23 16:21 General appearance: The patient is alert, oriented, appears in no acute distress. HET: Head is normocephalic and atraumatic. Pupils are equal and reactive. Neck: Supple. Heart: Regular. Lungs: Equal expansion, normal respiratory effort. Abdomen: Soft, nontender, nondistended. Extremities: Normal skin color and turgor. Good capillary refill. Bilateral PT Doppler signals present, left DP signal present. Neurological: No focal deficits. Strength and sensation are grossly intact. Results - Labs 02/16/23 02:26 02/16/23 02:26 Abnormal Lab Results - Last 24 Hours (Table) 02/15/23 02/15/23 02/15/23 Range/Units 17:06 17:06 17:06 RBC 2.93 L (4.30-5.90) m/uL Hgb 9.4 L (13.0-17.5) gm/dL Hct 27.1 L (39.0-53.0) % RDW (11.5-14.5) % Eosinophils # (0.04-0.35) X 10*3/uL APTT 21.7 L (22.0-30.0) sec BUN 38 H (9-20) mg/dL BUN/Creatinine Ratio (12.00-20.00) Ratio Glucose 127 H (74-99) mg/dL POC Glucose (mg/dL) (70-110) mg/dL Plasma Lactic Acid Eliot (0.7-2.0) mmol/L Calcium (8.7-10.3) mg/dL Total Bilirubin (0.3-1.2) mg/dL Total Protein (6.2-8.2) d/dL Albumin (3.8-4.9) d/dL 02/15/23 02/15/23 02/15/23 Range/Units 17:06 20:22 23:06 RBC (4.30-5.90) m/uL Hgb (13.0-17.5) gm/dL Hct (39.0-53.0) % RDW (11.5-14.5) % Eosinophils # (0.04-0.35) X 10*3/uL APTT (22.0-30.0) sec BUN (9-20) mg/dL BUN/Creatinine Ratio (12.00-20.00) Ratio Glucose (74-99) mg/dL POC Glucose (mg/dL) (70-110) mg/dL Plasma Lactic Acid Eliot 2.3 H* 2.8 H* 2.4 H* (0.7-2.0) mmol/L Calcium (8.7-10.3) mg/dL Total Bilirubin (0.3-1.2) mg/dL Total Protein (6.2-8.2) d/dL Albumin (3.8-4.9) d/dL 02/16/23 02/16/23 02/16/23 Range/Units 02:26 02:26 08:45 RBC 2.56 L (4.30-5.90) m/uL Hgb 8.0 L (13.0-17.5) gm/dL Hct 24.2 L (39.0-53.0) % RDW 14.6 H (11.5-14.5) % Eosinophils # 0.47 H (0.04-0.35) X 10*3/uL APTT (22.0-30.0) sec BUN 27.7 H (9-20) mg/dL BUN/Creatinine Ratio 27.70 H (12.00-20.00) Ratio Glucose (74-99) mg/dL POC Glucose (mg/dL) 59 L (70-110) mg/dL Plasma Lactic Acid Eliot (0.7-2.0) mmol/L Calcium 8.6 L (8.7-10.3) mg/dL Total Bilirubin <0.2 L (0.3-1.2) mg/dL Total Protein 5.4 L (6.2-8.2) d/dL Albumin 3.6 L (3.8-4.9) d/dL 02/16/23 Range/Units 09:21 RBC (4.30-5.90) m/uL Hgb (13.0-17.5) gm/dL Hct (39.0-53.0) % RDW (11.5-14.5) % Eosinophils # (0.04-0.35) X 10*3/uL APTT (22.0-30.0) sec BUN (9-20) mg/dL BUN/Creatinine Ratio (12.00-20.00) Ratio Glucose (74-99) mg/dL POC Glucose (mg/dL) 186 H (70-110) mg/dL Plasma Lactic Acid Eliot (0.7-2.0) mmol/L Calcium (8.7-10.3) mg/dL Total Bilirubin (0.3-1.2) mg/dL Total Protein (6.2-8.2) d/dL Albumin (3.8-4.9) d/dL Diabetes panel 02/15/23 02/16/23 Range/Units 17:06 02:26 Sodium 137 140 (137-145) mmol/L Potassium 4.6 4.6 (3.5-5.1) mmol/L Chloride 106 107 (98-107) mmol/L Carbon Dioxide 22 23.7 (22-30) mmol/L BUN 38 H 27.7 H (9-20) mg/dL Creatinine 0.97 1.0 (0.66-1.25) mg/dL Glucose 127 H 78 (74-99) mg/dL Calcium 9.2 8.6 L (8.4-10.2) mg/dL AST 27 20 (17-59) U/L ALT 25 25 (4-49) U/L Alkaline Phosphatase 66 60 (38-126) U/L Total Protein 6.4 5.4 L (6.3-8.2) g/dL Albumin 3.6 3.6 L (3.5-5.0) g/dL Calcium panel 02/15/23 02/16/23 Range/Units 17: 02:26 Calcium 9.2 8.6 L (8.4-10.2) mg/dL Albumin 3.6 3.6 L (3.5-5.0) g/dL Pituitary panel 02/15/23 02/16/23 Range/Units 17: 02:26 Sodium 137 140 (137-145) mmol/L Potassium 4.6 4.6 (3.5-5.1) mmol/L Chloride 106 107 (98-107) mmol/L Carbon Dioxide 22 23.7 (22-30) mmol/L BUN 38 H 27.7 H (9-20) mg/dL Creatinine 0.97 1.0 (0.66-1.25) mg/dL Glucose 127 H 78 (74-99) mg/dL Calcium 9.2 8.6 L (8.4-10.2) mg/dL Adrenal panel 02/15/23 02/16/23 Range/Units 17:06 02:26 Sodium 137 140 (137-145) mmol/L Potassium 4.6 4.6 (3.5-5.1) mmol/L Chloride 106 107 (98-107) mmol/L Carbon Dioxide 22 23.7 (22-30) mmol/L BUN 38 H 27.7 H (9-20) mg/dL Creatinine 0.97 1.0 (0.66-1.25) mg/dL Glucose 127 H 78 (74-99) mg/dL Calcium 9.2 8.6 L (8.4-10.2) mg/dL Total Bilirubin 0.3 <0.2 L (0.2-1.3) mg/dL AST 27 20 (17-59) U/L ALT 25 25 (4-49) U/L Alkaline Phosphatase 66 60 (38-126) U/L Total Protein 6.4 5.4 L (6.3-8.2) g/dL Albumin 3.6 3.6 L (3.5-5.0) g/dL - Imaging Comments: CT of the abdomen and pelvis that reported left-sided colonic diverticulosis. No evidence for acute diverticulitis. Prominent fluid-filled small bowel loops throughout the abdomen and pelvis correlate for generalized enteritis. 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 Severe stenosis proximal left SFA and right SFA origin moderate focal stenosis proximal PFA on both sides, right greater than left. Moderate left-sided hydronephrosis with transition point at the UPJ. Possible UPJ stricture/stenosis consider further urology referral/evaluation. Small hiatal hernia. Prostatomegaly a 5.8 cm wide. Assessment and Plan Assessment: 1. GI bleed 2. Chronic peripheral vascular disease follows with Dr. Muñoz, has upcoming appointment next week Tuesday 3. History of peripheral arterial disease with revascularization 4. Tobacco abuse, smokes 1-1/2 packs per day 5. Diabetes mellitus 6. Hypertension hyperlipidemia 7. COPD (1) GI bleed Current Visit: Yes Status: Acute Code(s): K92.2 - GASTROINTESTINAL HEMORRHAGE, UNSPECIFIED SNOMED Code(s): 65435524 (2) Peripheral vascular disease Current Visit: Yes Status: Acute Code(s): I73.9 - PERIPHERAL VASCULAR DISEASE, UNSPECIFIED SNOMED Code(s): 543312730 (3) Tobacco abuse Current Visit: Yes Status: Acute Code(s): Z72.0 - TOBACCO USE SNOMED Code(s): 045799892 (4) Diabetes mellitus Current Visit: Yes Status: Acute Code(s): E11.9 - TYPE 2 DIABETES MELLITUS WITHOUT COMPLICATIONS SNOMED Code(s): 48446202 Plan: 1. Continue with GI workup 2. Resume Plavix when cleared by gastroenterology 3. Recommend tobacco cessation 4. Patient to follow-up with Dr. Muñoz as scheduled next week Tuesday 5. No plans on any vascular surgical intervention. Patient is cleared for discharge from vascular surgery. Thank you for this consultation. The impression and plan of care has been dictated as directed. Dr. Blake I performed a history and examination of this patient, discussed the same with the dictator. I agree with the dictator's note ,documented as a scribe. Any additional findings or plans will be noted.
[2023-02-16 11:50] LABS: Glucose,Whole Blood 85 mg/dL (70-110)
[2023-02-16] MEDS: INSULIN ASPART (NovoLOG) 100 UNIT/ML VIAL SQ SCH ×3 (12:19→20:48)
--- NOTE | 2023-02-16 12:51 | P.HPIM ---
History of Present Illness H&P Date: 02/16/23 History of present illness; patient 72-year-old gentleman past medical history s ignificant for hypertension, diabetes mellitus who presented to the ER because of black stools. Patient stated that on Tuesday started feeling nauseous this was accompanied by multiple episodes of dark-colored vomitus. Patient also noticed that stools were dark in color. Patient is having left lower quadrant abdominal pain. Denies any lightheadedness or dizziness. Denies any chest pain. Denies shortness of breath. Because of these symptoms, patient came to the ER Initial lab work done in the ER showed WBC 10.1, hemoglobin 9.4, platelet count 270, sodium 137, potassium 4.6, BUN 30, creatinine 0.97, CT abdomen and pelvis done showed left-sided colonic diverticulosis, no evidence of acute diverticulitis. Prominent fluid-filled small bowel loops throughout the abdominal and pelvis. 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 Moderate left-sided hydronephrosis with transition point at the UPJ Patient admitted to medicine service REVIEW OF SYSTEMS: CONSTITUTIONAL: No fever, no malaise, no fatigue. HEENT: No recent visual problems or hearing problems. Denied any sore throat. CARDIOVASCULAR: No chest pain, orthopnea, PND, no palpitations, no syncope. PULMONARY: No shortness of breath, no cough, no hemoptysis. GASTROINTESTINAL: As mentioned in HPI NEUROLOGICAL: No headaches, no weakness, no numbness. HEMATOLOGICAL: Denies any bleeding or petechiae. GENITOURINARY: Denies any burning micturition, frequency, or urgency. MUSCULOSKELETAL/RHEUMATOLOGICAL: Denies any joint pain, swelling, or any muscle pain. ENDOCRINE: Denies any polyuria or polydipsia. The rest of the 14-point review of systems is negative. PHYSICAL EXAMINATION: GENERAL: The patient is alert and oriented x3, not in any acute distress. Well developed, well nourished. HEENT: Pupils are round and equally reacting to light. EOMI. No scleral icterus. No conjunctival pallor. Normocephalic, atraumatic. No pharyngeal erythema. No thyromegaly. CARDIOVASCULAR: S1 and S2 present. No murmurs, rubs, or gallops. PULMONARY: Chest is clear to auscultation, no wheezing or crackles. ABDOMEN: Soft, nontender, nondistended, normoactive bowel sounds. No palpable organomegaly. MUSCULOSKELETAL: No joint swelling or deformity. EXTREMITIES: No cyanosis, clubbing, or pedal edema. NEUROLOGICAL: Gross neurological examination did not reveal any focal deficits. SKIN: No rashes. Assessment and plan Acute blood loss anemia GI bleed Left-sided hydronephrosis SMA stenosis Hypertension Diabetes mellitus Monitor vital signs Monitor CBC Monitor CMP Continue telemetry monitoring Monitor H&H Hold aspirin and Plavix Continue IV Protonix Continue IV fluid GI consulted Because of left sided hydronephrosis, consult urology. Because of SMA stenosis, consult vascular surgery Labs and medication were reviewed.. Continue same treatment. Continue with symptomatic treatment. Resume home medication. Monitor labs and vitals. DVT and GI prophylaxis. Further recommendations as per clinical course of the patient Dictation was produced using [employer] dictation software. please excuse any grammatical, word or spelling errors. Past Medical History Past Medical History: Diabetes Mellitus, Hyperlipidemia, Hypertension, Osteoarthritis (OA), Vascular Disorder History of Any Multi-Drug Resistant Organisms: None Reported Past Surgical History: Orthopedic Surgery, Tonsillectomy Additional Past Surgical History / Comment(s): stent in rt groin, ORIF rt ankle, Past Anesthesia/Blood Transfusion Reactions: No Reported Reaction Past Psychological History: Anxiety Smoking Status: Current every day smoker Past Alcohol Use History: None Reported Past Drug Use History: None Reported - Past Family History Mother Family Medical History: No Reported History Medications and Allergies Home Medications Medication Instructions Recorded Confirmed Type ALPRAZolam [Xanax] 0.5 mg PO TID 12/08/18 02/15/23 History Aspirin [Adult Low Dose Aspirin EC] 81 mg PO DAILY 12/08/18 02/15/23 History Atorvastatin [Lipitor] 20 mg PO DAILY 12/08/18 02/15/23 History Clopidogrel Bisulfate [Plavix] 75 mg PO DAILY 12/08/18 02/15/23 History glyBURIDE/METFORMIN HCL 1 tab PO DAILY 12/08/18 02/15/23 History [Glucovance 2.5-500 mg] lisinopriL 20 mg PO DAILY 12/08/18 02/15/23 History Budesonide/Formoterol Fumarate 2 puff INHALATION RT-BID 02/15/23 02/15/23 History [Symbicort 160-4.5 Mcg Inhaler] Empagliflozin [Jardiance] 25 mg PO AC-BRKFST 02/15/23 02/15/23 History Insulin Glargine,Hum.rec.anlog 74 units SQ AC-KFST 02/15/23 02/15/23 History [Lantus Solostar Pen] metFORMIN HCL ER [Glucophage XR] 1,000 mg PO BID-W/MEALS 02/15/23 02/15/23 History Allergies Allergy/AdvReac Type Severity Reaction Status Date / Time No Known Allergies Allergy Verified 02/15/23 16:26 Physical Exam Vitals: Vital Signs Temp Pulse Resp BP Pulse Ox 02/16/23 07:00 97.7 F 91 18 110/54 97 02/16/23 06:00 78 16 117/48 97 02/15/23 23:44 82 16 128/60 96 02/15/23 18:27 85 02/15/23 18:13 88 18 129/73 02/15/23 16:21 97.4 F L 97 20 129/68 98 Intake and Output 02/15/23 02/16/23 02/16/23 22:59 06:59 14:59 Other: Weight 88.451 kg Results CBC & Chem 7: 02/16/23 02:26 02/16/23 02:26 Labs: Abnormal Lab Results - Last 24 Hours (Table) 02/15/23 02/15/23 02/15/23 Range/Units 17:06 17:06 17:06 RBC 2.93 L (4.30-5.90) m/uL Hgb 9.4 L (13.0-17.5) gm/dL Hct 27.1 L (39.0-53.0) % RDW (11.5-14.5) % Eosinophils # (0.04-0.35) X 10*3/uL APTT 21.7 L (22.0-30.0) sec BUN 38 H (9-20) mg/dL BUN/Creatinine Ratio (12.00-20.00) Ratio Glucose 127 H (74-99) mg/dL POC Glucose (mg/dL) (70-110) mg/dL Plasma Lactic Acid Eliot (0.7-2.0) mmol/L Calcium (8.7-10.3) mg/dL Total Bilirubin (0.3-1.2) mg/dL Total Protein (6.2-8.2) d/dL Albumin (3.8-4.9) d/dL 02/15/23 02/15/23 02/15/23 Range/Units 17:06 20:22 23:06 RBC (4.30-5.90) m/uL Hgb (13.0-17.5) gm/dL Hct (39.0-53.0) % RDW (11.5-14.5) % Eosinophils # (0.04-0.35) X 10*3/uL APTT (22.0-30.0) sec BUN (9-20) mg/dL BUN/Creatinine Ratio (12.00-20.00) Ratio Glucose (74-99) mg/dL POC Glucose (mg/dL) (70-110) mg/dL Plasma Lactic Acid Eliot 2.3 H* 2.8 H* 2.4 H* (0.7-2.0) mmol/L Calcium (8.7-10.3) mg/dL Total Bilirubin (0.3-1.2) mg/dL Total Protein (6.2-8.2) d/dL Albumin (3.8-4.9) d/dL 02/16/23 02/16/23 02/16/23 Range/Units 02:26 02:26 08:45 RBC 2.56 L (4.30-5.90) m/uL Hgb 8.0 L (13.0-17.5) gm/dL Hct 24.2 L (39.0-53.0) % RDW 14.6 H (11.5-14.5) % Eosinophils # 0.47 H (0.04-0.35) X 10*3/uL APTT (22.0-30.0) sec BUN 27.7 H (9-20) mg/dL BUN/Creatinine Ratio 27.70 H (12.00-20.00) Ratio Glucose (74-99) mg/dL POC Glucose (mg/dL) 59 L (70-110) mg/dL Plasma Lactic Acid Eliot (0.7-2.0) mmol/L Calcium 8.6 L (8.7-10.3) mg/dL Total Bilirubin <0.2 L (0.3-1.2) mg/dL Total Protein 5.4 L (6.2-8.2) d/dL Albumin 3.6 L (3.8-4.9) d/dL 02/16/23 Range/Units 09:21 RBC (4.30-5.90) m/uL Hgb (13.0-17.5) gm/dL Hct (39.0-53.0) % RDW (11.5-14.5) % Eosinophils # (0.04-0.35) X 10*3/uL APTT (22.0-30.0) sec BUN (9-20) mg/dL BUN/Creatinine Ratio (12.00-20.00) Ratio Glucose (74-99) mg/dL POC Glucose (mg/dL) 186 H (70-110) mg/dL Plasma Lactic Acid Eliot (0.7-2.0) mmol/L Calcium (8.7-10.3) mg/dL Total Bilirubin (0.3-1.2) mg/dL Total Protein (6.2-8.2) d/dL Albumin (3.8-4.9) d/dL
[2023-02-16] MEDS ORDERED: LIDOCAINE 2% INJ 20 MG/ML (2 ML VIAL) ONE (13:34)
[2023-02-16] MEDS ORDERED: PROPOFOL 10 MG/ML 20 ML VIAL IV ONE (13:34)
--- NOTE | 2023-02-16 14:18 | P.PCN ---
Date of Procedure: 02/16/23 Procedure(s) Performed: BRIEF HISTORY: Patient is a 72-year-old, pleasant, white male admitted hospital after having several episodes of coffee-ground emesis 2 days ago. His initial hemoglobin was 10 and dropped to 8 g/dL.. He has history of peripheral vascular disease and currently and aspirin and Plavix. Last dose was yesterday. He scheduled for an upper endoscopy to evaluate further . PROCEDURE PERFORMED: Esophagogastroduodenoscopy. PREOPERATIVE DIAGNOSIS: Acute upper GI bleed. IV sedation per anesthesia. PROCEDURE: After informed consent was obtained, the patient was brought into the endoscopy unit. IV sedation was administered by Anesthesia under continuous monitoring. Initially the Olympus GIF-140 video endoscope was inserted into the mouth. Esophagus intubated without any difficulty. It was gradually advanced into the stomach and duodenum and carefully examined. The bulb had mild duodenitis and the second part of the duodenum appeared normal. The scope at this time was withdrawn to the stomach, adequately insufflated with air, and upon careful examination, mucosa of the antrum, body, cardia and the fundus appeared normal. The scope was then withdrawn into the esophagus. The GE junction was located at 39 cm from the incisors. There was a 1 cm nonbleeding ulcer at the GE junction. The rest of the esophagus appeared normal. There were no erosions or ulcerations seen and the patient tolerated the procedure well. IMPRESSION: 1. 1 cm GE junction ulcer with no active bleeding. 2. Mild duodenitis. RECOMMENDATIONS: The findings of this examination were discussed with the patient . He will continue with Protonix 40 mg twice daily. Advance diet as tolerated. If his hemoglobin remains stable he can be discharged home this evening with outpatient follow-up in 2 weeks..
[2023-02-16] MEDS: ALPRAZolam 0.5 MG TAB PO SCH ×2 (15:35→20:49)
[2023-02-16 18:05] LABS: Glucose,Whole Blood 211 mg/dL (70-110)
[2023-02-16] MEDS: SYMBICORT 160-4.5 MCG INHALER INHALATION SCH (19:39)
[2023-02-16 20:45] LABS: Glucose,Whole Blood 264 mg/dL (70-110)
[2023-02-17 05:56] LABS: Glucose,Whole Blood 94 mg/dL (70-110)
[2023-02-17] MEDS: INSULIN ASPART (NovoLOG) 100 UNIT/ML VIAL SQ SCH ×2 (06:07→15:52)
[2023-02-17] MEDS ORDERED: INSULIN DETEMIR (LEVEMIR) 100 UNIT/ML SYR SQ SCH (07:30)
[2023-02-17 08:01] VITALS: RESP 16
[2023-02-17] MEDS: SYMBICORT 160-4.5 MCG INHALER INHALATION SCH (08:21)
[2023-02-17 08:53] LABS: Basophils # (A) 0.05 X 10*3/uL (0.00-0.10); Basophils % (A) 0.7 %; Eosinophils # (A) 0.58 X 10*3/uL (0.04-0.35); Eosinophils % (A) 7.6 %; HCT 23.8 % (39.6-50.0); HGB 7.9 d/dL (13.0-17.0); Lymphocytes # (A) 1.83 X 10*3/uL (0.90-5.00); Lymphocytes % (A) 23.8 %; MCH 30.9 pg (27.0-32.0); MCHC 33.2 d/dL (32.0-37.0); Mean Platelet Volume 10.8 FL (9.5-12.2); Monocytes # (A) 0.67 X 10*3/uL (0.20-1.00); Monocytes % (A) 8.7 %; NRBC Per 100 WBC 0 X 10*3/uL (0.00-0.01); Neutrophils # (A) 4.52 X 10*3/uL (1.80-7.70); Neutrophils % (A) 58.8 %; Platelet Count 297 X 10*3/uL (140-440); RBC 2.56 X 10*6/uL (4.40-5.60); RDW 14.4 % (11.5-14.5); WBC 7.68 X 10*3/uL (4.50-10.00)
[2023-02-17] MEDS ORDERED: ATORVASTATIN 20 MG TAB PO SCH (09:00)
[2023-02-17] MEDS ORDERED: lisinopriL 20 MG TAB PO SCH (09:00)
[2023-02-17] MEDS: NICOTINE 14MG/24HR PATCH TRANSDERM SCH (09:33)
[2023-02-17] MEDS: ALPRAZolam 0.5 MG TAB PO SCH (09:33)
[2023-02-17] MEDS: PANTOPRAZOLE 40 MG/10 ML VIAL IV SCH (09:33)
[2023-02-17 12:24] LABS: HGB 8.9 gm/dL (13.0-17.5); MCH 31.5 pg (25.0-35.0); MCHC 32.8 g/dL (31.0-37.0); Mean Platelet Volume 8.4; Platelet Count 317 k/uL (150-450); RBC 2.82 m/uL (4.30-5.90); RDW 14.2 % (11.5-15.5); WBC 8.2 k/uL (3.8-10.6)
[2023-02-17 12:44] LABS: Glucose,Whole Blood 159 mg/dL (70-110)
[2023-02-17 13:56] VITALS: BP 122/61; PULSE 83; TEMP 98
--- NOTE | 2023-02-17 14:45 | P.PN ---
Subjective Progress Note Date: 02/17/23 Principal diagnosis: GI bleed, SMA and bilateral renal artery stenosis Patient is seen and examined today as a follow-up. He is without any acute changes through the night. He is without any complaints today. He denies any shortness of breath, chest pain or abdominal pain. No further bleeding. Objective - Vital Signs Vital signs: Vital Signs Temp 97.7 F 02/17/23 07:00 Pulse 87 02/17/23 07:00 Resp 16 02/17/23 07:00 BP 116/61 02/17/23 07:00 Pulse Ox 95 02/17/23 07:00 FiO2 Intake & Output 02/16/23 02/17/23 02/17/23 18:59 06:59 18:59 Other: # Voids 2 # Bowel Movements 0 - Exam General appearance: The patient is alert, oriented, appears in no acute distress. HET: Head is normocephalic and atraumatic. Pupils are equal and reactive. Neck: Supple. Heart: Regular. Lungs: Equal expansion, normal respiratory effort. Abdomen: Soft, nontender, nondistended. Extremities: Normal skin color and turgor. Good capillary refill. Bilateral PT Doppler signals present, left DP signal present. Neurological: No focal deficits. Strength and sensation are grossly intact. - Labs CBC & Chem 7: 02/17/23 11:57 02/16/23 02:26 Labs: Abnormal Lab Results - Last 24 Hours (Table) 02/16/23 02/16/23 02/17/23 Range/Units 17:27 20:44 05:32 RBC 2.56 L (4.40-5.60) X 10*6/uL Hgb 7.9 L (13.0-17.0) d/dL Hct 23.8 L (39.6-50.0) % Eosinophils # 0.58 H (0.04-0.35) X 10*3/uL POC Glucose (mg/dL) 211 H 264 H (70-110) mg/dL Assessment and Plan Assessment: 1. GI bleed 2. Chronic peripheral vascular disease follows with Dr. Muñoz, has upcoming appointment next week Tuesday 3. History of peripheral arterial disease with revascularization 4. Tobacco abuse, smokes 1-1/2 packs per day 5. Diabetes mellitus 6. Hypertension hyperlipidemia 7. COPD (1) GI bleed Current Visit: Yes Status: Acute Code(s): K92.2 - GASTROINTESTINAL HEMORRHAGE, UNSPECIFIED SNOMED Code(s): 27936179 (2) Peripheral vascular disease Current Visit: Yes Status: Acute Code(s): I73.9 - PERIPHERAL VASCULAR DISEASE, UNSPECIFIED SNOMED Code(s): 078190751 (3) Tobacco abuse Current Visit: Yes Status: Acute Code(s): Z72.0 - TOBACCO USE SNOMED Code(s): 278127555 (4) Diabetes mellitus Current Visit: Yes Status: Acute Code(s): E11.9 - TYPE 2 DIABETES MELLITUS WITHOUT COMPLICATIONS SNOMED Code(s): 64214325 Plan: 1. Continue with GI workup 2. Resume Plavix when cleared by gastroenterology 3. Recommend tobacco cessation 4. Patient to follow-up with Dr. Muñoz as scheduled next week Tuesday 5. No plans on any vascular surgical intervention. Patient is cleared for discharge from vascular surgery. Thank you for this consultation. We will sign off at this time. The impression and plan of care has been dictated as directed. Dr. Blake I performed a history and examination of this patient, discussed the same with the dictator. I agree with the dictator's note ,documented as a scribe. Any additional findings or plans will be noted.
--- NOTE | 2023-02-17 14:51 | P.PN ---
Subjective Progress Note Date: 02/17/23 Principal diagnosis: GI bleed This is a pleasant 72-year-old male with a past medical history including peripheral vascular disease, COPD, diabetes mellitus, hyperlipidemia, hyper tension and current every day smoker who presented to the emergency department with complaints of coffee-ground emesis and black stools since Tuesday. He states he only had one episode of coffee-ground emesis he had a little bit of cramping associated with that and he had been having dark stools for the last few days duration. He states he only had 1 episode of emesis none further. Stools are now becoming gut puller. Patient denies any previous history of GI bleed, no history of peptic ulcer disease, he is not on any NSAIDs he does take a low-dose baby aspirin and Plavix 75 mg daily last dose yesterday. Patient was noted to have anemia with elevated BUN. He had a CT of the abdomen and pelvis that reported left-sided colonic diverticulosis. No evidence for acute diverticulitis. Prominent fluid-filled small bowel loops throughout the abdomen and pelvis correlate for generalized enteritis. 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 Severe stenosis proximal left SFA and right SFA origin moderate focal stenosis proximal PFA on both sides, right greater than left. Moderate left-sided hydronephrosis with transition point at the UPJ. Possible UPJ stricture/stenosis consider further urology referral/evaluation. Small hiatal hernia. Prostatomegaly a 5.8 cm wide. 02/17/2023 Patient seen and examined today as a follow-up. Had a small bowel movement this morning which she states was gut puller. Denies any abdominal pain, and nausea, or vomiting. He is tolerating a regular diet. Hemoglobin stable at 8.9 Objective - Vital Signs Vital signs: Vital Signs Temp 97.7 F 02/17/23 07:00 Pulse 87 02/17/23 07:00 Resp 16 02/17/23 07:00 BP 116/61 02/17/23 07:00 Pulse Ox 95 02/17/23 07:00 FiO2 Intake & Output 02/16/23 02/17/23 02/17/23 18:59 06:59 18:59 Other: # Voids 2 # Bowel Movements 0 - Exam General appearance: The patient is alert, oriented, appears in no acute distress. HET: Head is normocephalic and atraumatic. Conjunctiva pink. Sclera anicteric. Neck: Supple without lymphadenopathy. Abdomen: Soft, nontender, nondistended with bowel sounds. No guarding or rigidity. Extremities: Normal skin color and turgor. No pedal edema Skin: No rashes, no jaundice Neurological: No focal deficits. Alert and oriented. - Labs CBC & Chem 7: 02/17/23 11:57 02/16/23 02:26 Labs: Abnormal Lab Results - Last 24 Hours (Table) 02/16/23 02/16/23 02/17/23 Range/Units 17:27 20:44 05:32 RBC (4.40-5.60) X 10*6/uL Hgb (13.0-17.0) d/dL Hct (39.6-50.0) % Eosinophils # (0.04-0.35) X 10*3/uL POC Glucose (mg/dL) 211 H 264 H (70-110) mg/dL Hemoglobin A1c 6.7 H (<=6.0) % 02/17/23 02/17/23 02/17/23 Range/Units 05:32 11:57 12:43 RBC 2.56 L 2.82 L (4.40-5.60) X 10*6/uL Hgb 7.9 L 8.9 L (13.0-17.0) d/dL Hct 23.8 L 27.0 L (39.6-50.0) % Eosinophils # 0.58 H (0.04-0.35) X 10*3/uL POC Glucose (mg/dL) 159 H (70-110) mg/dL Hemoglobin A1c (<=6.0) % Assessment and Plan (1) GI bleed Narrative/Plan: 72-year-old male with a history of peripheral vascular disease amongst other comorbidities presented with black stool and coffee-ground emesis that began on Tuesday. No previous history of peptic ulcer disease, GI bleed, denies any anticoagulation or NSAID use. Patient is on Plavix for peripheral arterial disease. The patient noted to be anemic on admission with hemoglobin 9.4 with a drop today to 8.0, normocytic normochromic anemia. Patient also had elevated BUN 38 on admission now 27.7 CONSISTENT with possible upper GI bleed. Unclear etiology, need to consider possible peptic ulcer disease, AVM, gastritis, esophagitis, or other possible etiologies. Will proceed with upper endoscopy today. Patient underwent upper endoscopy with findings of 1 cm GE junction ulcer with no active bleeding and mild duodenitis Current Visit: Yes Status: Acute Code(s): K92.2 - GASTROINTESTINAL HEMORRHAGE, UNSPECIFIED SNOMED Code(s): 88731691 (2) Peripheral vascular disease Narrative/Plan: On Plavix, and aspirin 81 mg daily Current Visit: Yes Status: Acute Code(s): I73.9 - PERIPHERAL VASCULAR DISEASE, UNSPECIFIED SNOMED Code(s): 662740063 (3) Tobacco abuse Current Visit: Yes Status: Acute Code(s): Z72.0 - TOBACCO USE SNOMED Code(s): 564163684 (4) Diabetes mellitus Current Visit: Yes Status: Acute Code(s): E11.9 - TYPE 2 DIABETES MELLITUS WITHOUT COMPLICATIONS SNOMED Code(s): 34257188 Plan: 1. Continue symptomatic and supportive care 2. Continue Protonix 40 mg twice a day 3. Patient is status post upper endoscopy 4. Patient is clear from gastroenterology for discharge, follow-up in 4 weeks Thank you for this consultation, we will sign off at this time. Dr. Mallorie Botello I agree with the dictator's note, documented as a scribe by Federica Wills.
--- NOTE | 2023-02-17 14:57 | P.DS ---
Providers Date of admission: 02/17/23 10:01 Expected date of discharge: 02/17/23 Attending physician: Jyoti Lema Consults: 02/15/23 18:47 Consult Physician Urgent Consulting Provider: China Botello Consult Reason/Comments: GI bleed Do you want consulting provider notified?: Yes 02/16/23 10:22 Consult Physician Urgent Consulting Provider: Idania Blake Consult Reason/Comments: SMA and bilateral renal artery stenosis Do you want consulting provider notified?: Yes 02/16/23 10:23 Consult Physician Urgent Consulting Provider: Justin Gil Consult Reason/Comments: Left-sided hydronephrosis Do you want consulting provider notified?: Yes Primary care physician: [facility] Course: * 72-year-old gentleman past medical history significant for hypertension, diabetes mellitus who presented to the ER because of black stools. Patient stated that on Tuesday started feeling nauseous this was accompanied by multiple episodes of dark-colored vomitus. Patient also noticed that stools were dark in color. Patient is having left lower quadrant abdominal pain. * Initial lab work done in the ER showed WBC 10.1, hemoglobin 9.4, platelet c ount 270, sodium 137, potassium 4.6, BUN 30, creatinine 0.97, * CT abdomen and pelvis done showed left-sided colonic diverticulosis, no evidence of acute diverticulitis. Prominent fluid-filled small bowel loops throughout the abdominal and pelvis. 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 Moderate left-sided hydronephrosis with transition point at the UPJ * Patient has history of bilateral lower extremity disabling claudication with left common femoral artery occlusion status post revascularization. Last aort ogram with runoff in 2019 reported SFA occlusive disease in the right distal to the Aubrey's canal, left common femoral artery severe occlusive disease, profundus patent SFA chronic total occlusion at the midportion down the thigh. * Patient has appointment with Dr. Muñoz next week Tuesday. He denies any change in symptoms, no significant increase in pain in his lower extremities. No shortness of breath, chest pain, or abdominal pain. * Patient had a CT of the abdomen and pelvis with contrast that reported severe stenosis at origin and proximal aspect of the SMA and likely at the bilateral proximal renal arteries as well. Severe stenosis proximal left SFA and right SFA origin. Moderate focal stenosis proximal PFA on both sides right greater than left, vascular surgery was consulted * Patient was seen by gastroenterology and had EGD completed during the hospitalization normoactive [place] bleeding was noted * A she was started on Protonix and cleared for discharge by gastroenterology * Due to significant peripheral vascular disease aspirin and Plavix was resumed PHYSICAL EXAMINATION: GENERAL: The patient is alert and oriented x3, not in any acute distress. Well developed, well nourished. HEENT: Pupils are round and equally reacting to light. EOMI. No scleral icterus. No conjunctival pallor. Normocephalic, atraumatic. No pharyngeal erythema. No thyromegaly. CARDIOVASCULAR: S1 and S2 present. No murmurs, rubs, or gallops. PULMONARY: Chest is clear to auscultation, no wheezing or crackles. ABDOMEN: Soft, nontender, nondistended, normoactive bowel sounds. No palpable organomegaly. MUSCULOSKELETAL: No joint swelling or deformity. EXTREMITIES: No cyanosis, clubbing, or pedal edema. NEUROLOGICAL: Gross neurological examination did not reveal any focal deficits. SKIN: No rashes. * GI bleed * Chronic peripheral vascular disease follows with Dr. Muñoz, has upcoming appointment next week Tuesday * History of peripheral arterial disease with revascularization * Tobacco abuse, smokes 1-1/2 packs per day * Diabetes mellitus * Hypertension hyperlipidemia * COPD Patient is status was EGD normoactive [place] bleeding noted, cleared for discharge by gastroenterology. Continue patient on Protonix In regards to peripheral vascular disease continue aspirin, Plavix, Lipitor Outpatient follow-up with primary care physician for hemoglobin check In regards to diabetes home regimen continued without changes Patient Condition at Discharge: Fair Plan - Discharge Summary New Discharge Prescriptions: New Pantoprazole Sodium [Protonix] 40 mg PO BID #60 tab Continue lisinopriL 20 mg PO DAILY Atorvastatin [Lipitor] 20 mg PO DAILY Clopidogrel Bisulfate [Plavix] 75 mg PO DAILY ALPRAZolam [Xanax] 0.5 mg PO TID glyBURIDE/METFORMIN HCL [Glucovance 2.5-500 mg] 1 tab PO DAILY Aspirin [Adult Low Dose Aspirin EC] 81 mg PO DAILY metFORMIN HCL ER [Glucophage XR] 1,000 mg PO BID-W/MEALS Budesonide/Formoterol Fumarate [Symbicort 160-4.5 Mcg Inhaler] 2 puff INHALATION RT-BID Empagliflozin [Jardiance] 25 mg PO AC-BRKFST Insulin Glargine,Hum.rec.anlog [Lantus Solostar Pen] 74 units SQ AC-BRKFST Discharge Medication List ALPRAZolam [Xanax] 0.5 mg PO TID 12/08/18 [History] Aspirin [Adult Low Dose Aspirin EC] 81 mg PO DAILY 12/08/18 [History] Atorvastatin [Lipitor] 20 mg PO DAILY 12/08/18 [History] Clopidogrel Bisulfate [Plavix] 75 mg PO DAILY 12/08/18 [History] glyBURIDE/METFORMIN HCL [Glucovance 2.5-500 mg] 1 tab PO DAILY 12/08/18 [History] lisinopriL 20 mg PO DAILY 12/08/18 [History] Budesonide/Formoterol Fumarate [Symbicort 160-4.5 Mcg Inhaler] 2 puff INHALATION RT-BID 02/15/23 [History] Empagliflozin [Jardiance] 25 mg PO AC-BRKFST 02/15/23 [History] Insulin Glargine,Hum.rec.anlog [Lantus Solostar Pen] 74 units SQ AC-BRKFST 02/15/23 [History] metFORMIN HCL ER [Glucophage XR] 1,000 mg PO BID-W/MEALS 02/15/23 [History] Pantoprazole Sodium [Protonix] 40 mg PO BID #60 tab 02/16/23 [Rx] Follow up Appointment(s)/Referral(s): China Botello MD [STAFF PHYSICIAN] - 2 Weeks [place] Carl MD [Primary Care Provider] - 1-2 days Discharge Disposition: HOME SELF-CARE
[2023-02-17] MEDS: SODIUM CHLORIDE 0.9% 1,000 ML IV SCH (15:52)
[2023-02-17] MEDS: DEXTROSE 5%-0.9% NACL 1,000 ML IV SCH (15:52)
== END 2023-02-17 15:46 | disposition home or self-care (01) | DRG 378 ==
LOC: EC 16:19 → 6NMEDSUR 18:47 → OBSVTOIN 02-17 10:01
PROVIDERS: ADMIT Hospitalist; ATTEND Hospitalist
PROC: 0DJ08ZZ Inspection of Upper Intestinal Tract, Via Natural or Artificial Opening Endoscopic (ICD-10-PCS; principal; 2023-02-16 08:15)
DX: K25.4 Chronic or unspecified gastric ulcer with hemorrhage (principal); D62 Acute posthemorrhagic anemia; I70.92 Chronic total occlusion of artery of the extremities; K55.1 Chronic vascular disorders of intestine; N13.30 Unspecified hydronephrosis; E11.51 Type 2 diabetes mellitus with diabetic peripheral angiopathy without gangrene; E78.5 Hyperlipidemia, unspecified; F17.210 Nicotine dependence, cigarettes, uncomplicated; F41.9 Anxiety disorder, unspecified; I10 Essential (primary) hypertension; I70.1 Atherosclerosis of renal artery; I70.202 Unspecified atherosclerosis of native arteries of extremities, left leg; J44.9 Chronic obstructive pulmonary disease, unspecified; K57.90 Diverticulosis of intestine, part unspecified, without perforation or abscess without bleeding; K29.80 Duodenitis without bleeding; K44.9 Diaphragmatic hernia without obstruction or gangrene; N40.0 Benign prostatic hyperplasia without lower urinary tract symptoms; Z79.02 Long term (current) use of antithrombotics/antiplatelets; Z79.51 Long term (current) use of inhaled steroids; Z79.82 Long term (current) use of aspirin; Z79.84 Long term (current) use of oral hypoglycemic drugs; Z79.899 Other long term (current) drug therapy
CPT/HCPCS: 36415; 43235; 74177; 80053; 82272; 83036; 83605; 83735; 84484; 85025; 85027; 85610; 85730; 93005; 94640; 96361; 96374; 96375; 96376; 99285

== ENCOUNTER → 2023-12-21 | Outpatient (CLI) | payer MEDICARE, BC ==
--- NOTE | 2023-12-21 10:49 | CTL ---
EXAMINATION TYPE: CT Low Dose Lung DATE OF EXAM ORDERED: 12/21/2023 HISTORY: Current smoker, 55 pack-year history. Lung cancer screening CT DLP: 92.[address] CTDI: 2.4 mGy Automated exposure control for dose reduction was used. SCREENING VISIT: First screening visit COMPARISON: None TECHNIQUE: Low dose computed tomography scan was performed through the chest at 1 mm thick sections a nd reconstructed images in multiple planes at 1 mm and [address] DIAGNOSTIC QUALITY: Satisfactory FINDINGS: Nodules: Left lower lobe 5.6 mm groundglass nodule (series 6, image 42). LUNGS: COPD: Severity: Mild Fibrosis: Severity: None Lymph nodes: None Other findings: Bibasilar linear atelectasis. RIGHT PLEURAL SPACE: Effusion: None Calcification: None Thickening: None Pneumothorax: None LEFT PLEURAL SPACE: Effusion: None Calcification: None Thickening: None Pneumothorax: None HEART: Heart Size: Normal Coronary Calcification: Severe three-vessel Pericardial Effusion: None OTHER FINDINGS: Upper abdomen: None Bony thorax: No acute process. Mild multilevel degenerative disc disease. Supraclavicular region: None Other: Moderate atherosclerotic plaque throughout the aorta and its branches. Suggested moderate to s evere high-grade stenosis at the origins of the celiac access and SMA due to calcified plaque. Conven tional three-vessel aortic arch with moderate stenosis due to calcified plaque at the origins of the left subclavian, left common carotid, and brachiocephalic trunk. IMPRESSION: 1. Left lower lobe 5.6 mm groundglass pulmonary nodule. 2. Mild COPD changes. 3. Moderate to severe axis carotid plaque throughout the visualized aorta and its branches as describ ed above. 4. Severe three-vessel coronary artery calcifications. CT LUNG RAD AND CT CHEST RECOMMENDATION: Lung-Rad 2 Benign Appearance or Behavior: Continue annual sc reening with LDCT in 12 months. S Modifier (other clinically significant findings): S
== END | disposition home or self-care (01) ==
LOC: RADCTMAIN 09:53
PROVIDERS: ATTEND Internal Medicine
DX: Z12.2 Encounter for screening for malignant neoplasm of respiratory organs (principal); R91.1 Solitary pulmonary nodule; J44.9 Chronic obstructive pulmonary disease, unspecified; I25.10 Atherosclerotic heart disease of native coronary artery without angina pectoris; I65.22 Occlusion and stenosis of left carotid artery; F17.210 Nicotine dependence, cigarettes, uncomplicated
CPT/HCPCS: 71271